=== PATIENT | female | born 1990 | race African-American/Black ===

== ENCOUNTER 2017-05-25 23:38 | Inpatient (IN) ==
[2017-05-26] MEDS ORDERED: SODIUM CHLORIDE 0.9% 1,000 ML IV STA ×2 (01:49→02:59)
[2017-05-26 02:10] LABS: Alanine Aminotransferase 23 U/L (13-56); Albumin 3.6 G/DL (3.4-5.0); Alkaline Phosphatase 186 U/L (45-117); Aspartate Amino Transferase 19 U/L (0-37); Blood Urea Nitrogen < 1 MG/DL (7-18); Osmolality,Calculated 292.7 MOS/KG (273-304); Potassium 2.8 MMOL/L (3.5-5.1); Sodium 133 MMOL/L (136-145); Total Protein 9.1 G/DL (6.4-8.3)
[2017-05-26 02:16] LABS: Glucose 652 MG/DL (74-106)
[2017-05-26] MEDS ORDERED: INSULIN REGULAR 100 UNIT/ML IV STA (02:59)
[2017-05-26] MEDS ORDERED: INSULIN REGULAR 100 UNIT/ML ONE (03:21)
[2017-05-26] MEDS ORDERED: SODIUM CHLORIDE 0.9% 1,000 ML IV ONE (03:41)
[2017-05-26] MEDS ORDERED: SODIUM PHOSPHATE INJ 30 MMOL in SODIUM CHLORIDE 0.9% 250 ML IV PRN (03:41)
[2017-05-26] MEDS ORDERED: DEXTROSE 50% 25 GM/50 ML SYRINGE IV PRN ×2 (03:41)
[2017-05-26] MEDS ORDERED: SODIUM BICARB INJ 100 MEQ in STERILE WATER INJ 400 ML IV PRN (03:41)
[2017-05-26 03:42] LABS: Apearance,Urine Slightly Hazy (Clear); Bilirubin,Urine Negative (Negative); Blood, Urine Large mg/dL (Negative); Glucose,Urine (UA) >=500 mg/dL (Negative); Ketones,Urine 80 mg/dL (Negative); Mucus,Urine Occasional /LPF (Occasional); Nitrite,Urine Negative (Negative); Protein,Urine Negative; RBC,Urine 73 /HPF (0-4); Squamous Epithelial Cell,Urine Occasional /HPF (0-10); Urine Color Straw (Yellow); Urine Specific Gravity 1.013 (1.001-1.035); Urine Urobilinogen < 2.0 EU/DL (0.2-1.0); WBC,Urine 19 /HPF (0-6)
[2017-05-26] MEDS ORDERED: MAGNESIUM SULF RIDER 4 GM in PREMIX 1 EACH IV PRN (03:51)
[2017-05-26] MEDS ORDERED: POTASSIUM CHLORIDE RIDER 10 MEQ in PREMIX 1 EACH IV PRN ×2 (03:51→21:12)
[2017-05-26] MEDS ORDERED: MAGNESIUM SULF RIDER 2 GM in PREMIX 1 EACH IV PRN (03:51)
[2017-05-26] MEDS ORDERED: INSULIN REGULAR DRIP 100 ML IV SCH (04:00)
--- NOTE | 2017-05-26 04:06 | Hospitalist History & Physical ---
Assessment and Plan - Time spent with patient Time spent with patient: Greater than 30 minutes (1) DKA (diabetic ketoacidoses) Status: Acute Assessment and plan: Admit to hospitalist services. Admit to ICU. BG 652, CO2 12, Anion Gap 21.8, Serum Osmo 292.7, pH 7.238, HCO3 10.7. NS bolus x 3 given in ED; Continue fluid resuscitation per DKA protocol. Regular insulin 10 units IV given in ED, after which patient's BG dropped from 652 to 371. Continue Regular insulin 4 units/hour and titrate per DKA protocol. K+ 2.8; Potassium chloride 60 meq PO given in ED. Additional replacement PRN. Hourly accuchecks. Obtain Magnesium and Phosphorous; replace PRN. Repeat CBC, CMP, and Ketones in am. Current Visit: Yes (2) Diabetes mellitus, new onset Status: Acute Assessment and plan: As above. Full liquid diet. Consult President & Founder and Dietitian. Current Visit: Yes (3) Hypokalemia Status: Acute Assessment and plan: As above. Current Visit: Yes (4) Yeast infection Status: Acute Assessment and plan: Extensive infection covering perineal area, bilateral upper thighs and buttocks. Diflucan 200 mg IV Q 24 hours. Monistat 100 mg Vaginal Suppository QHS x 7 doses. Current Visit: Yes (5) UTI (urinary tract infection) Status: Acute Assessment and plan: Likely yeast UTI. Diflucan 200 mg IV Q24 hours. Urine cultures obtained in ED; follow. Current Visit: Yes (6) Hypertension Status: Acute Assessment and plan: No home medications. Hydralazine 10 mg IV Q6 PRN. Monitor. Current Visit: Yes (7) DVT prophylaxis Status: Acute Assessment and plan: Lovenox 40 mg SQ daily. Current Visit: Yes History of Present Illness Chief complaint: Vomiting; Yeast infection History of present illness: Ms. Morris is a 27 year old female with a past medical history of cerebral palsy, seizures, and hypertension who presented to the ED tonight with complaints of nausea and vomiting x 2 days and severe yeast infection x 2 months. Ms. Morris states that she has tried numerous OTC treatments for her yeast infection but nothing has worked, and it has continued to get worse, spreading to her lower abdomen, upper thighs and buttocks. Additionally, she began experiencing nausea, vomiting, lower abdominal pain, subjective fevers, and chills 2 days ago and has been unable to eat anything in that length of time. She also complains of no bowel movement x 2 months. She denies any known history of diabetes. She us unable to use the right side of her body due to CVA at and is wheelchair bound. She reports that she has been known to occasionally have seizures if she gets too hot but does not take any seizure medications. She has not taken BP meds in about 2 years because she has not reestablished with a PCP after moving. ED work up showed Na 133, K 2.8, CO2 12, Anion Gap 12, BG 652, and Serum osmolality 292.7. Other labs are still pending. CT abd/pelvis was negative for any acute process. Currently, she is lying in bed eating ice chips without any additional complaints. Hospitalist services were consulted, and the patient will be admitted for further evaluation and treatment. Home medications were reviewed and reconciled. This patient is a full code. Home Medications Medication Instructions Recorded Confirmed Type Cyclobenzaprine [Flexeril] 10 mg PO TID PRN #20 tablet 10/09/15 Rx HYDROcodone/ACETAMIN 7.5-325 1 tablet PO Q4H #20 tablet 10/09/15 Rx [[place] 7.5-325] Sulfameth/Trimeth 800-160 Tab 1 tablet PO BID #14 tablet 10/09/15 Rx [Bactrim Ds Tab] Cyclobenzaprine [Flexeril] 10 mg PO TID #20 tablet 12/12/15 Rx HYDROcodone/ACETAMIN 5-325 [[place] 1 tablet PO Q6H #10 tablet 12/12/15 Rx 5-325] Allergies Allergy/AdvReac Type Severity Reaction Status Date / Time aspirin AdvReac Nausea Verified 04/05/15 05:27 ibuprofen [From Motrin] AdvReac Nausea Verified 04/05/15 05:27 Medical,Surgical,& Family Hx - Medical History Cardio: History of: Hypertension Neurology: History of: Cerebral Palsy Endocrine: History of: Dyslipidemia Musculoskeletal: History of: Musculoskeletal Problems (right sided paralysis) - Surgical History Abdominal Surgeries: Surgical HX of: Cholecystectomy Orthopedic Surgeries: Surgical HX of;: Orthopedic Surgery (Right ankle ORIF ) - Family History Family History: Reports;: Family Hypertension - Social History Smoking Status: Never smoker Have you smoked in the last 12 months: No Frequency of Alcohol Use: None Type of Drug Use: None Marital Status: Single Lives With:: Significant Other Functional capacity: wheelchair bound 12 point system: reviewed and no additional remarkable complaints except as stated - Constitutional Constitutional: Present: chills, fever(s). Absent: malaise, weakness - EENT Eyes: Absent: blurry vision, diplopia, loss of vision Ears: Absent: decreased hearing, ear discharge, ear pain Nose, mouth and throat: Absent: headache(s), nasal congestion, sore throat - Cardiovascular Cardiovascular: Absent: chest pain at rest, diaphoresis, dyspnea, edema, orthopnea, palpitations - Respiratory Respiratory: Absent: cough, dyspnea, wheezing - Gastrointestinal Gastrointestinal: Present: abdominal pain, constipation, nausea, vomiting. Absent: diarrhea - Genitourinary Genitourinary: Present: urinary frequency, vaginal discharge. Absent: dysuria - Musculoskeletal Musculoskeletal: Absent: arthralgias, joint swelling, muscle weakness, myalgias - Neurological Neurological: Absent: confusion, numbness, paresthesias, syncope - Psychiatric Psychiatric: Absent: anxiety, depression - Endocrine Endocrine: Present: polydipsia, polyuria. Absent: cold intolerance, polyphagia - Hematologic/Lymphatic Hematologic/Lymphatic: Absent: easy bleeding, easy bruising Exam - Constitutional Vitals: Period Temp Pulse Resp BP Sys/Gonzalez Pulse Ox Last 24 Hr 97.4 F-97.4 F 108-108 15-15 149-149/88-88 100 Exam: Constitutional System: Afebrile. Awake, alert and oriented x 3. No distress. No tremulousness. Skin: Confluent, tender dermatitis covering bilateral upper thighs, perineal area and buttocks. Head: Normocephalic, atraumatic. Ears, Nose and Throat System: No pain or tenderness. No epistaxis or discharge Eyes System: Pupils equal, round, and reactive. Bilateral exophthalmos and lateral deviation noted. Neck: Supple, without adenopathy, No jugular venous distention. No thyromegaly, neck mass, or prior surgery apparent. Respiratory System: Chest clear to auscultation. Cardiovascular System: Heart with tachycardic rate and regualr rhythm. No murmur. GI System: Abdomen soft, tender over suprapubic area. Normo active bowel sounds present. Musculoskeletal System: Limbs with no pedal edema. Full distal pulses. Normal capillary refill. Neurological System: Right-sided paralysis. No discernable sensory deficit. No aphasia Psychiatric System: Conversation is rational Results - Labs CBC & BMP: 05/26/17 Unknown 05/26/17 Unknown Lab Results: I have reviewed the past 24 hour labs - Diagnostic Findings Procedure: CT Abdomen and Pelvis: other (Report pending. )
[2017-05-26 04:15] LABS: VBG HCO3 10.7 MEQ/L (24-28); VBG Oxygen Saturation 99.4 %; VBG PH 7.238
[2017-05-26] MEDS ORDERED: POTASSIUM CHLORIDE 20 MEQ TABLET PO ONE ×2 (05:21→05:26)
[2017-05-26] MEDS ORDERED: hydrALAZINE 20 MG/1 ML VIAL IV PRN (05:30)
[2017-05-26] MEDS: INSULIN REGULAR DRIP 100 ML IV SCH ×2 (05:56→20:31)
[2017-05-26] MEDS: FLUCONAZOLE INJ 200 MG in PREMIX 1 EACH IV SCH (06:08)
[2017-05-26 06:20] LABS: Allen Test Positive; Pt O2 Delivery Device Room Air
[2017-05-26 06:21] LABS: ABG HCO3 11.2 MMOL/L (20-26); ABG Oxygen Saturation 97.9 % (95-100); ABG PH 7.246 (7.35-7.45); ABG TCO2 7.5 MMOL/L (23-27)
[2017-05-26 06:22] LABS: ABG PCO2 18.7 MM HG (35-48)
--- NOTE | 2017-05-26 07:01 | Emergency Department Note ---
Arrival - Arrival Chief Complaint: Nausea/Vomiting/Diarrhea Stated Complaint: Nausea/Vomiting and yeast infection ED Nursing Triage Note: Patient stated that she has had Nausea and Vomiting x 2 days, and states that she has a severe yeast infection that she has been treating for two months now. Mode of Arrival: Stretcher Time Seen by Provider: 05/26/17 00:11 - History of Present Illness HPI Narrative: This is a 27-year-old female of descent with a history of cerebral palsy making it impossible for her to walk who presents with vaginal white discharge for 2 months with associated yeastlike outbreak in the perivaginal area associated with 2 months of excessive thirst and increased urination. The patient had sex approximately 4 months ago and developed the yeast infection symptoms approximately 2 months ago. She has no history of fever shortness of breath but she is complaining of vomiting and nausea for the past 2 days. Patient denies ever having history of diabetes. Date of Last Menstrual Period: 2 months Allergies/Adverse Reactions: Allergies Allergy/AdvReac Type Severity Reaction Status Date / Time aspirin AdvReac Nausea Verified 04/05/15 05:27 ibuprofen [From Motrin] AdvReac Nausea Verified 04/05/15 05:27 Home Medications: Home Medications Medication Instructions Recorded Confirmed Type Cyclobenzaprine [Flexeril] 10 mg PO TID PRN #20 tablet 10/09/15 Rx HYDROcodone/ACETAMIN 7.5-325 1 tablet PO Q4H #20 tablet 10/09/15 Rx [[place] 7.5-325] Sulfameth/Trimeth 800-160 Tab 1 tablet PO BID #14 tablet 10/09/15 Rx [Bactrim Ds Tab] Cyclobenzaprine [Flexeril] 10 mg PO TID #20 tablet 12/12/15 Rx HYDROcodone/ACETAMIN 5-325 [[place] 1 tablet PO Q6H #10 tablet 12/12/15 Rx 5-325] Review of System - Review of System Constitutional: Absent: fever Eyes: Absent: discharge, redness Head/Ears/Nose/Throat: Absent: earache Respiratory: Absent: cough, respiratory distress Cardiovascular: Absent: chest pain, dyspnea on exertion Gastrointestinal: Present: nausea, vomiting. Absent: diarrhea, constipation Genitourinary female: Present: discharge, frequency. Absent: dysuria Musculoskeletal: Absent: joint swelling, lower back pain Skin: Present: change in color, change in hair/nails Neurological: Present: numbness, paresthesias Psychiatric: Present: anxiety, depression Endocrine: Present: polydipsia, polyuria Hematological/Lymphatic: Present: easy bleeding, easy bruising Allergic/Immunologic: Present: urticaria, itchy eyes Medical,Surgical,& Family Hx - Medical History Cardio: History of: Hypertension Neurology: History of: Cerebrovascular Accident (at ), Cerebral Palsy Endocrine: History of: Diabetes Mellitus (NIDDM), Dyslipidemia Musculoskeletal: History of: Musculoskeletal Problems (right sided paralysis) - Surgical History Abdominal Surgeries: Surgical HX of: Cholecystectomy Orthopedic Surgeries: Surgical HX of;: Orthopedic Surgery (Right ankle ORIF ) - Family History Family History: Reports;: Family Hypertension Comment Only: Family Stroke (Paternal Grandfather) - Social History Smoking Status: Never smoker Frequency of Alcohol Use: None Type of Drug Use: None Exam Vital Signs: Vital Signs Temperature 97.4 F L 05/25/17 23:39 Pulse Rate 91 H 05/26/17 05:10 Respiratory Rate 19 05/26/17 05:10 Blood Pressure 131/93 05/26/17 05:10 O2 Sat by Pulse Oximetry 98 05/26/17 06:00 - General General appearance: alert, in no apparent distress - Eye Eye exam: Present: PERRL, nystagmus - ENT ENT exam: Present: normal exam, TM's normal bilaterally - Neck Neck exam: Present: normal inspection, full ROM - Chest Chest inspection: Present: normal inspection, symmetric chest wall rise - Respiratory Respiratory exam: Present: normal lung sounds bilaterally - Cardiovascular Cardiovascular exam: Present: regular rate, normal rhythm - Abdominal Exam Abdominal exam: Present: soft, normal bowel sounds - Extremities Exam Extremities exam: Present: normal inspection, full ROM - Back Exam Back exam: Present: normal inspection, full ROM - Neurological Exam Neurological exam: Present: alert, oriented X3, CN II-XII intact - Psychiatric Psychiatric exam: Present: normal affect, normal mood - Skin Skin exam: Present: warm, dry, intact Course Course Narrative: The patient's laboratory tests are consistent with diabetic ketoacidosis therefore seems reasonable patient should be admitted to the hospital for further evaluation and treatment. Results - Labs CBC & BMP: 05/26/17 Unknown 05/26/17 Unknown Disposition Clinical Impression: Diabetic ketoacidosis Disposition: Still a Patient Condition: Stable
--- NOTE | 2017-05-26 07:03 | CT Report ---
CT abdomen pelvis Indication: Abdominal pain Comparison: 09 October 2015 Technique: Axial CT imaging of the abdomen and pelvis is performed with intravenous and oral contrast. Contrast dose is 100 cc of Omnipaque 350. Findings: Cardiac and lung bases are within normal limits CT abdomen: The liver is diffusely decreased in density spleen pancreas and adrenal glands are normal in size and enhancement. No evidence of focal lesion is demonstrated in these solid organs. Gallbladder is been removed. Kidneys are normal in size and enhancement. No evidence of hydronephrosis or nephrolithiasis is seen. Increased stool volume in the ascending colon. Otherwise the bowel caliber is normal and no wall thickening or adjacent inflammatory change is seen. No evidence of free fluid or free air is present. CT pelvis: The pelvic bowel appears within normal limits. Bladder shows no evidence of abnormality. The uterus appears within normal limits. There is a cystic area adjacent to the uterus on the left that measures up to 1 cm in size. Impression: Possible left ovarian or adnexal cyst. Diffuse fatty liver infiltration. Increased stool volume ascending colon. This CT exam was performed using one or more the following dose reduction techniques: Automated exposure control, adjustment of the MA and/or KV according to patient size, or use of iterative reconstruction technique. PROCEDURE INTERPRETED AT [facility] DEPARTMENT OF RADIOLOGY Final Report Signed by: Dr. José Miguel Hannah
[2017-05-26] MEDS: SODIUM CHLORIDE 0.9% 1,000 ML IV SCH ×2 (07:05→13:03)
[2017-05-26] MEDS ORDERED: MAGNESIUM SULF RIDER 2 GM in PREMIX 1 EACH IV ONE (08:01)
[2017-05-26 08:18] LABS: Allen Test Positive; Pt O2 Delivery Device Room Air
[2017-05-26 08:19] LABS: ABG Base Excess -17.2 MMOL/L (-2.5-2.5); ABG HCO3 11.6 MMOL/L (20-26); ABG Oxygen Saturation 97.3 % (95-100); ABG PO2 98.4 MM HG (80-95); ABG TCO2 8.1 MMOL/L (23-27)
[2017-05-26 08:22] LABS: ABG PCO2 20.1 MM HG (35-48)
[2017-05-26] MEDS: POTASSIUM CHLORIDE INJ 10 MEQ in DEXTROSE 5% NACL 0.9% 1,000 ML IV SCH ×3 (08:36→19:18)
[2017-05-26] MEDS: ENOXAPARIN 40 MG/0.4 ML SYRINGE SUBCUT SCH (08:37)
[2017-05-26] MEDS: POTASSIUM CHLORIDE 20 MEQ TABLET PO SCH ×4 (08:37→21:15)
[2017-05-26 08:48] LABS: Basophils % 0.3 % (0.0-0.8); Eosinophils % 0.2 % (0.00-10.9); Hematocrit 39.9 VOL% (35.7-47.0); Hemoglobin 12.9 GM/DL (12.0-16.0); Immature Granulocytes % 1.2 %; Immature Granulocytes Absolute 0.16 #; Lymphocytes # 2.5 10*3/uL (1.4-4.0); Lymphocytes % 18.7 % (21.3-54.2); Mean Corpuscular HGB Conc 32.3 GM/DL (32-36); Mean Corpuscular Hemoglobin 27 PG (27-34); Mean Corpuscular Volume 84.5 FL (87-102); Mean Platelet Volume 11.9 FL (9.6-12.0); Monocytes % 7.8 % (1.7-12.7); NRBC # 0.04 10*3/uL; Neutrophils # 9.6 10*3/uL (1.4-7.4); Neutrophils % 71.8 % (38.7-73.9); Platelet Count 392 T/CUMM (130-400); Red Blood Count 4.72 MC/CUMM (3.8-5.5); Red Cell Distribution Width 19.9 % (9.3-17.3); White Blood Count 13.3 T/CUMM (4-12)
[2017-05-26] MEDS ORDERED: SODIUM CHLORIDE 0.9% 1,000 ML IV SCH (08:51)
[2017-05-26 09:44] LABS: Blood Urea Nitrogen < 1 MG/DL (7-18); Glucose 189 MG/DL (74-106); Magnesium 1.9 MG/DL (1.8-2.4); Osmolality,Calculated 283.5 MOS/KG (273-304); Phosphorous 0.9 MG/DL (2.5-4.9); Potassium 2.7 MMOL/L (3.5-5.1); Sodium 142 MMOL/L (136-145)
[2017-05-26] MEDS: LEVOFLOXACIN INJ 500 MG in PREMIX 1 EACH IV SCH (10:52)
[2017-05-26] MEDS: DESITIN 4OZ/NYSTATIN 15 GRAM MIXTURE PASTE TOP SCH ×2 (12:18→21:36)
--- NOTE | 2017-05-26 15:28 | Post Interventional Procedure ---
Pre-op diagnosis: diabetic ketoacidosis, n/v Post-op diagnosis: same Procedure: PICC placement Contrast: none Flouroscopy: 2.4 min Radiologist: Nam De La Rosa Anesthesia: local Specimens: none sent Estimated blood loss: minimal (5 mL) Complications: none Condition: stable Description/Findings: left bascilic and cephalic veins are patent and compressible initial attempts to cannulate the cephalic vein were unsuccessful The 5 Fr dual lumen PICC was placed into the basilic vein and is ready for use. Assessment and Plan - Time spent with patient Time spent with patient: Less than 30 minutes
--- NOTE | 2017-05-26 15:33 | Interventional Radiology Rpt ---
IR PICC line insertion, US guide vascular access IR PICC Placement Peripherally-inserted central catheter (PICC) placement using ultrasound and fluoroscopic guidance Ultrasound of the left upper extremity Clinical Information: 27-year-old female with diabetic ketoacidosis, or use infection and nausea vomiting with limited peripheral venous access. PICC line is requested. Physician: Dr. De La Rosa Procedure: The patient was advised of the benefits, risks, and alternatives of the procedure and informed consent was obtained. A time out was performed with verification of the patient's name, MRN, site of procedure, and type of procedure to be performed. The patient was positioned in the supine position on the angiographic table. The site was prepped and draped in the usual sterile fashion. Additionally, maximal sterile barrier technique was employed for the procedure. A air moving technician radiograph reveals no relevant abnormality. Ultrasound examination of the left arm demonstrates patent and compressible brachial and basilic veins. The basilic veins are noted to be diminutive in size. There is also patent and compressible cephalic vein. Initial attempts to cannulate the cephalic vein were unsuccessful. The left arm was prepped and draped in the usual sterile fashion. The left basilic vein was again identified. Using ultrasound guidance, a 21 gauge needle was used to access the vein. A permanent ultrasound recording of vascular access was obtained for the patient's record. A 0.018" cope wire was then advanced into the vein. The needle was exchanged for a 5 Congolese peel-away sheath. A 5 [place] double lumen Bard Solo PICC catheter was measured and trimmed to the 44 cm brooks. The PICC line was advanced through the sheath and into the central circulation. The catheter tip was positioned at the cavo-atrial junction. The peel-away sheath was then removed. At the conclusion of the procedure, the catheter was secured in place using a Stat-Lock device. A sterile dressing was applied. The lumens aspirate and flush freely. The catheter is ready for immediate use. The patient tolerated the procedure well and was returned to the PRU in stable condition. EBL: < 5 mL. Complications: None. Fluoroscopy time: 2.4 minutes Total number of images for this study: 5 Conclusion: Successful placement of a 5 [place] double lumen Bard Solo power injectable PICC via the left basilic vein. The catheter is ready for immediate use. PROCEDURE INTERPRETED AT [facility] DEPARTMENT OF RADIOLOGY Final Report Signed by: Nam De La Rosa
[2017-05-26 17:07] LABS: Blood Urea Nitrogen < 1 MG/DL (7-18); Calcium 7.6 MG/DL (8.5-10.1); Glucose 349 MG/DL (74-106); Osmolality,Calculated 294.3 MOS/KG (273-304); Potassium 3.5 MMOL/L (3.5-5.1); Sodium 143 MMOL/L (136-145)
[2017-05-26 17:38] LABS: Basophils # 0.1 10*3/uL (0.0-0.2); Basophils % 0.5 % (0.0-0.8); Eosinophils # 0.1 10*3/uL (0.0-0.87); Hematocrit 33.6 VOL% (35.7-47.0); Hemoglobin 10.8 GM/DL (12.0-16.0); Lymphocytes # 2.2 10*3/uL (1.4-4.0); Lymphocytes % 22.5 % (21.3-54.2); Mean Corpuscular HGB Conc 32.1 GM/DL (32-36); Mean Corpuscular Hemoglobin 27 PG (27-34); Mean Corpuscular Volume 83.8 FL (87-102); Mean Platelet Volume 11.3 FL (9.6-12.0); Monocytes # 1.3 10*3/uL (0.11-0.8); Neutrophils # 6.1 10*3/uL (1.4-7.4); Platelet Count 319 T/CUMM (130-400); Red Blood Count 4.01 MC/CUMM (3.8-5.5); Red Cell Distribution Width 19.9 % (9.3-17.3); White Blood Count 9.9 T/CUMM (4-12)
[2017-05-26 18:57] LABS: Blood Urea Nitrogen < 1 MG/DL (7-18); Calcium 7.5 MG/DL (8.5-10.1); Glucose 324 MG/DL (74-106); Osmolality,Calculated 291.5 MOS/KG (273-304); Potassium 2.9 MMOL/L (3.5-5.1); Sodium 142 MMOL/L (136-145)
[2017-05-26] MEDS ORDERED: POTASSIUM CHLORIDE INJ 40 MEQ in SODIUM CHLORIDE 0.45% 1,000 ML IV SCH (19:30)
[2017-05-26] MEDS: POTASSIUM CHLORIDE INJ 40 MEQ in SODIUM CHLORIDE 0.45% 1,000 ML IV SCH (20:05)
[2017-05-26] MEDS: MICONAZOLE 100 MG VAG SUPP 7/BOX VAG SCH (21:36)
[2017-05-26] MEDS: ONDANSETRON 4 MG/2 ML VIAL IV PRN (21:37)
[2017-05-26] MEDS: SODIUM CHLORIDE 0.45% 1,000 ML IV SCH (21:37)
[2017-05-26] MEDS: POTASSIUM CHLORIDE RIDER 20 MEQ in PREMIX 1 EACH IV PRN (21:49)
[2017-05-26] MEDS: DEXT 5% NACL 0.45% KCL 40 MEQ 40 MEQ/1,000 ML BAG IV SCH (22:03)
[2017-05-26] MEDS ORDERED: METOPROLOL TARTRATE 5 MG/5 ML VIAL IV ONE (23:41)
[2017-05-27] MEDS: POTASSIUM CHLORIDE INJ 40 MEQ in SODIUM CHLORIDE 0.45% 1,000 ML IV SCH (03:40)
[2017-05-27 04:17] LABS: Blood Urea Nitrogen < 1 MG/DL (7-18); Calcium 8.5 MG/DL (8.5-10.1); Glucose 127 MG/DL (74-106); Osmolality,Calculated 291.6 MOS/KG (273-304); Sodium 148 MMOL/L (136-145)
[2017-05-27] MEDS: POTASSIUM CHLORIDE RIDER 20 MEQ in PREMIX 1 EACH IV PRN ×2 (04:33→23:04)
[2017-05-27 04:51] LABS: Free T4 (Free Thyroxine) 1.37 NG/DL (0.76-1.46)
[2017-05-27] MEDS: DEXT 5% NACL 0.45% KCL 40 MEQ 40 MEQ/1,000 ML BAG IV SCH ×3 (05:48→18:39)
[2017-05-27] MEDS: FLUCONAZOLE INJ 200 MG in PREMIX 1 EACH IV SCH (05:56)
[2017-05-27] MEDS: SODIUM CHLORIDE 0.45% 1,000 ML IV SCH (05:56)
[2017-05-27 08:27] LABS: Blood Urea Nitrogen < 1 MG/DL (7-18); Calcium 8.1 MG/DL (8.5-10.1); Glucose 229 MG/DL (74-106); Osmolality,Calculated 294.8 MOS/KG (273-304); Sodium 147 MMOL/L (136-145)
[2017-05-27 08:32] LABS: Potassium 7.2 MMOL/L (3.5-5.1)
[2017-05-27] MEDS ORDERED: DEXTROSE 5% NACL 0.45% 1,000 ML IV SCH (09:00)
[2017-05-27] MEDS: INSULIN REGULAR DRIP 100 ML IV SCH (09:00)
[2017-05-27] MEDS: LEVOFLOXACIN INJ 500 MG in PREMIX 1 EACH IV SCH (09:01)
[2017-05-27] MEDS: DESITIN 4OZ/NYSTATIN 15 GRAM MIXTURE PASTE TOP SCH ×2 (09:02→22:00)
[2017-05-27] MEDS: ENOXAPARIN 40 MG/0.4 ML SYRINGE SUBCUT SCH (09:02)
[2017-05-27] MEDS ORDERED: NIFEdipine 10 MG CAPSULE PO PRN (11:05)
--- NOTE | 2017-05-27 11:09 | Hospitalist Progress Note ---
Assessment and Plan (1) DKA (diabetic ketoacidoses) Status: Acute Assessment and plan: The patient was moved the hospital with diabetic ketoacidosis. We are still determining her daily insulin requirement and will continue insulin infusion for today. Acidosis has been resolved. I suspect that she still has total body hypo-kalemia but her laboratory returned hyperkalemic result. Potassium repletion is on hold for now awaiting the next BMP. We will continue with insulin infusion overnight and consider transition to injected insulin tomorrow. The patient has poor insight into her disease process and is so far stating that she would not use injected insulin which is unfortunate. Current Visit: Yes Qualifiers: Diabetes mellitus type: type 1 Diabetes mellitus complication detail: without coma Qualified Code(s): E10.10 - Type 1 diabetes mellitus with ketoacidosis without coma (2) Diabetes mellitus, new onset Status: Acute Current Visit: Yes Hospitalist: Subjective Interval history: The patient remains on insulin infusion. Glucose is well controlled at present and acidosis is resolved. The patient's appetite is now improving and she has less nausea and abdominal pain is resolved. The patient has poor insight into her disease. The patient states that she has had disconjugate gaze and exophthalmos since childhood. Thyroid function testing is within normal limits. The patient has no previous history of diabetes. Exam - Constitutional Vitals: Period Temp Pulse Resp BP Sys/Gonzalez Pulse Ox Last 24 Hr 97.4 F-98.3 F 98-128 17-28 113-162/71-113 95-100 Exam: Constitutional System: Mild distress. No tremulousness. Head: Normocephalic, atraumatic. Ears, Nose and Throat System: No evidence of Otitis or Mastoiditis. No epistaxis or discharge Eyes System: The patient has appropriate site. She has exophthalmos and disconjugate gaze. Neck: Supple, without adenopathy, No jugular venous distention. No thyromegaly , neck mass, or prior surgery apparent. Respiratory System: Chest clear to auscultation. Cardiovascular System: Heart with regular rate and rhythm. No murmur. GI System: Abdomen soft, nontender. Normo active bowel sounds present. Musculoskeletal System: limbs with 1+ pedal edema. Full distal pulses. Neurological System: No discernable sensory deficit. No aphasia Psychiatric System: Conversation is rational Results - Labs CBC & BMP: 05/26/17 Unknown 05/27/17 07:51 Lab Results: I have reviewed the past 24 hour labs
[2017-05-27 13:02] LABS: Blood Urea Nitrogen < 1 MG/DL (7-18); Calcium 8.5 MG/DL (8.5-10.1); Glucose 92 MG/DL (74-106); Osmolality,Calculated 289.6 MOS/KG (273-304); Sodium 148 MMOL/L (136-145)
[2017-05-27 18:13] LABS: Blood Urea Nitrogen < 1 MG/DL (7-18); Calcium 8.4 MG/DL (8.5-10.1); Glucose 103 MG/DL (74-106); Osmolality,Calculated 291.5 MOS/KG (273-304); Potassium 2.7 MMOL/L (3.5-5.1); Sodium 149 MMOL/L (136-145)
[2017-05-27] MEDS: MICONAZOLE 100 MG VAG SUPP 7/BOX VAG SCH (22:05)
[2017-05-27 22:15] LABS: Blood Urea Nitrogen < 1 MG/DL (7-18); Calcium 8.4 MG/DL (8.5-10.1); Glucose 141 MG/DL (74-106); Osmolality,Calculated 291.6 MOS/KG (273-304); Potassium 2.7 MMOL/L (3.5-5.1); Sodium 148 MMOL/L (136-145)
[2017-05-28] MEDS: POTASSIUM CHLORIDE RIDER 20 MEQ in PREMIX 1 EACH IV PRN (00:53)
[2017-05-28 01:37] LABS: Blood Urea Nitrogen < 1 MG/DL (7-18); Calcium 7.9 MG/DL (8.5-10.1); Glucose 188 MG/DL (74-106); Magnesium 1.9 MG/DL (1.8-2.4); Osmolality,Calculated 292.8 MOS/KG (273-304); Potassium 3.2 MMOL/L (3.5-5.1); Sodium 147 MMOL/L (136-145)
[2017-05-28] MEDS: DEXT 5% NACL 0.45% KCL 40 MEQ 40 MEQ/1,000 ML BAG IV SCH (03:04)
[2017-05-28] MEDS: FLUCONAZOLE INJ 200 MG in PREMIX 1 EACH IV SCH (06:10)
[2017-05-28] MEDS: INSULIN REGULAR DRIP 100 ML IV SCH (06:55)
[2017-05-28] MEDS ORDERED: GLUCAGON 1 MG VIAL IM PRN (07:44)
[2017-05-28] MEDS ORDERED: DEXTROSE 50% 25 GM/50 ML SYRINGE IV PRN (07:44)
[2017-05-28 07:53] LABS: Blood Urea Nitrogen < 1 MG/DL (7-18); Calcium 8.4 MG/DL (8.5-10.1); Glucose 80 MG/DL (74-106); Osmolality,Calculated 284.9 MOS/KG (273-304); Potassium 3.5 MMOL/L (3.5-5.1); Sodium 146 MMOL/L (136-145)
--- NOTE | 2017-05-28 07:53 | Hospitalist Progress Note ---
Assessment and Plan (1) DKA (diabetic ketoacidoses) Status: Acute Assessment and plan: The patient's acidosis has resolved. Going to discontinue insulin infusion and start injected insulin twice daily before meals as well as glipizide. The patient likely has diabetes mellitus type 2 with onset of acidosis after continuous hyperglycemia. I am going to reduce the IV fluid and dextrose infusion and continue the patient's regular diet. We will continue with potassium replacement and recheck electrolytes this afternoon and again tomorrow morning. The Lora catheter will be removed. Current Visit: Yes Qualifiers: Diabetes mellitus type: type 1 Diabetes mellitus complication detail: without coma Qualified Code(s): E10.10 - Type 1 diabetes mellitus with ketoacidosis without coma (2) Diabetes mellitus, new onset Status: Acute Current Visit: Yes Hospitalist: Subjective Interval history: Mrs. Morris complains of supra-pubic crampy discomfort. She has not had fever , cough, shortness of breath. Appetite is better. The patient is stable and ready to transition to injected insulin and moved to the floor. Acidosis has resolved. Exam - Constitutional Vitals: Period Temp Pulse Resp BP Sys/Gonzalez Pulse Ox Last 24 Hr 97.1 F-98.1 F 82-118 14-23 105-161/62-113 96-100 Exam: Constitutional System: Mild distress. No tremulousness. Head: Normocephalic, atraumatic. Ears, Nose and Throat System: No evidence of Otitis or Mastoiditis. No epistaxis or discharge Eyes System: The patient has appropriate site. She has exophthalmos and disconjugate gaze. Neck: Supple, without adenopathy, No jugular venous distention. No thyromegaly , neck mass, or prior surgery apparent. Respiratory System: Chest clear to auscultation. Cardiovascular System: Heart with regular rate and rhythm. No murmur. GI System: Abdomen soft, nontender. Normo active bowel sounds present. Musculoskeletal System: limbs with 1+ pedal edema. Full distal pulses. Neurological System: No discernable sensory deficit. No aphasia Psychiatric System: Conversation is rational Results - Labs CBC & BMP: 05/26/17 Unknown 05/28/17 01:10 Lab Results: I have reviewed the past 24 hour labs
[2017-05-28] MEDS: LEVOFLOXACIN INJ 500 MG in PREMIX 1 EACH IV SCH (08:24)
[2017-05-28] MEDS: DESITIN 4OZ/NYSTATIN 15 GRAM MIXTURE PASTE TOP SCH ×2 (08:35→21:56)
[2017-05-28] MEDS: FLUCONAZOLE 200 MG TABLET PO SCH (08:36)
[2017-05-28] MEDS: ENOXAPARIN 40 MG/0.4 ML SYRINGE SUBCUT SCH (08:36)
[2017-05-28] MEDS ORDERED: ALUMINUM/MAGNES/SIMETH MAX STR 30 ML UDCUP PO PRN (11:20)
[2017-05-28] MEDS: INSULIN LISPRO 100 UNIT/ML SUBCUT SCH ×4 (11:29→21:56)
[2017-05-28] MEDS: ACETAMINOPHEN 500 MG TABLET PO PRN (11:36)
[2017-05-28] MEDS: POTASSIUM CHLORIDE 20 MEQ TABLET PO SCH ×2 (11:37→16:02)
[2017-05-28] MEDS: glipiZIDE 10 MG TABLET PO SCH (16:01)
[2017-05-28] MEDS: INSULIN NPH/REGULAR 70/30 100 UNIT/ML SUBCUT SCH (16:04)
[2017-05-28 16:28] LABS: Blood Urea Nitrogen < 1 MG/DL (7-18); Calcium 8.2 MG/DL (8.5-10.1); Glucose 348 MG/DL (74-106); Magnesium 1.8 MG/DL (1.8-2.4); Osmolality,Calculated 288.8 MOS/KG (273-304); Potassium 4.2 MMOL/L (3.5-5.1); Sodium 140 MMOL/L (136-145)
[2017-05-28] MEDS: MICONAZOLE 100 MG VAG SUPP 7/BOX VAG SCH (21:57)
[2017-05-29] MEDS: INSULIN LISPRO 100 UNIT/ML SUBCUT SCH ×6 (02:25→22:07)
[2017-05-29 04:00] LABS: Blood Urea Nitrogen < 1 MG/DL (7-18); Calcium 8.3 MG/DL (8.5-10.1); Glucose 166 MG/DL (74-106); Osmolality,Calculated 293.6 MOS/KG (273-304); Potassium 3.3 MMOL/L (3.5-5.1); Sodium 148 MMOL/L (136-145)
[2017-05-29] MEDS: glipiZIDE 10 MG TABLET PO SCH ×2 (08:31→16:25)
[2017-05-29] MEDS: INSULIN NPH/REGULAR 70/30 100 UNIT/ML SUBCUT SCH ×2 (08:31→18:02)
[2017-05-29] MEDS: ACETAMINOPHEN 500 MG TABLET PO PRN (08:32)
[2017-05-29] MEDS: FLUCONAZOLE 200 MG TABLET PO SCH (08:32)
[2017-05-29] MEDS: ENOXAPARIN 40 MG/0.4 ML SYRINGE SUBCUT SCH (08:32)
[2017-05-29] MEDS: LEVOFLOXACIN INJ 500 MG in PREMIX 1 EACH IV SCH (08:36)
[2017-05-29] MEDS ORDERED: POTASSIUM CHLORIDE 20 MEQ/15 ML UDCUP PO ONE (08:41)
[2017-05-29] MEDS: SULFAMETHOX/TRIMETHOPRIM 800-160 MG TABLET PO SCH ×2 (09:41→21:54)
[2017-05-29 10:18] LABS: Risk Ratio 3.31; VLDL CHOLESTEROL 18.2 MG/DL
[2017-05-29] MEDS: DESITIN 4OZ/NYSTATIN 15 GRAM MIXTURE PASTE TOP SCH ×2 (10:39→21:54)
--- NOTE | 2017-05-29 11:20 | Hospitalist Progress Note ---
Assessment and Plan (1) DKA (diabetic ketoacidoses) Status: Acute Assessment and plan: Resolved though blood sugar is still fairly poorly controlled plan increase NPH 70/30 to 45units bid, follow response. DM teaching Current Visit: Yes Qualifiers: Diabetes mellitus type: type 1 Diabetes mellitus complication detail: without coma Qualified Code(s): E10.10 - Type 1 diabetes mellitus with ketoacidosis without coma (2) Diabetes mellitus, new onset Status: Acute Assessment and plan: [id number] Increase NPH, follow response, DM teaching Current Visit: Yes (3) Obesity Status: Acute Assessment and plan: will get TSH, Lipids, Dietitian to advise Current Visit: Yes (4) Yeast infection Status: Acute Assessment and plan: Extensive infection covering perineal area, bilateral upper thighs and buttocks. Continue Diflucan and monostat Current Visit: Yes (5) UTI (urinary tract infection) Status: Acute Assessment and plan: due to MRSA Continue Levaquin and Bactrim Current Visit: Yes (6) Hypertension Status: Acute Assessment and plan: consider starting Lisinopril follow response Current Visit: Yes (7) Cerebral palsy Status: Acute Assessment and plan: stage 2. Patient is wheelchair bound Plan nursing care GI and DVT prophylaxis Current Visit: Yes (8) Hypokalemia Status: Acute Assessment and plan: will replete, bmp in am Current Visit: Yes Hospitalist: Subjective Interval history: Patient seen this am. She is wheelchair bound due to her underlying cerebral palsy.Her blood sugar is still fairly high. Exam - Constitutional Vitals: Period Temp Pulse Resp BP Sys/Gonzalez Pulse Ox Last 24 Hr 97.0 F-99.9 F 97-111 16-20 102-122/61-83 94-100 General appearance: no acute distress, morbidly obese, other (paraplegic) - Head Head exam: Present: normal inspection - Respiratory Respiratory exam: Present: clear to auscultation bilaterally - Cardiovascular Cardiovascular exam: Present: regular rate and rhythm - GI/Abdominal GI/Abdominal exam: Present: normal bowel sounds - Extremities Exam Extremities exam: Present: other (paraplegic) Results - Labs CBC & BMP: 05/26/17 Unknown 05/29/17 03:23 Lab Results: I have reviewed the past 24 hour labs
[2017-05-29] MEDS ORDERED: POTASSIUM CHLORIDE 20 MEQ TABLET PO ONE (11:28)
[2017-05-29] MEDS: MICONAZOLE 100 MG VAG SUPP 7/BOX VAG SCH (21:54)
[2017-05-30] MEDS: INSULIN LISPRO 100 UNIT/ML SUBCUT SCH ×6 (02:09→22:17)
[2017-05-30 06:07] LABS: Basophils % 0.3 % (0.0-0.8); Eosinophils # 0.2 10*3/uL (0.0-0.87); Eosinophils % 2.1 % (0.00-10.9); Hematocrit 31.1 VOL% (35.7-47.0); Hemoglobin 10.2 GM/DL (12.0-16.0); Immature Granulocytes % 1.8 %; Immature Granulocytes Absolute 0.16 #; Lymphocytes # 4.1 10*3/uL (1.4-4.0); Lymphocytes % 46.7 % (21.3-54.2); Mean Corpuscular HGB Conc 32.8 GM/DL (32-36); Mean Corpuscular Hemoglobin 28 PG (27-34); Mean Corpuscular Volume 86.4 FL (87-102); Monocytes # 1.1 10*3/uL (0.11-0.8); Monocytes % 12.6 % (1.7-12.7); NRBC # 0.11 10*3/uL; Neutrophils # 3.2 10*3/uL (1.4-7.4); Neutrophils % 36.5 % (38.7-73.9); Platelet Count 266 T/CUMM (130-400); Red Cell Distribution Width 23.1 % (9.3-17.3); White Blood Count 8.7 T/CUMM (4-12)
[2017-05-30 06:38] LABS: Eosinophils 1 % (0-10); Hypochromasia Slight; Lymphocytes 35 % (20-55); Macrocytosis 1+; Nucleated Red Blood Cells 3 (0-5); Platelet Estimate Adequate; Polychromasia Slight; Segmented Neutrophils 54 % (50-85); Total Cells Counted 100
[2017-05-30 06:46] LABS: Blood Urea Nitrogen < 1 MG/DL (7-18); Calcium 8.7 MG/DL (8.5-10.1); Glucose 144 MG/DL (74-106); Osmolality,Calculated 285.2 MOS/KG (273-304); Potassium 3.9 MMOL/L (3.5-5.1); Sodium 144 MMOL/L (136-145)
[2017-05-30] MEDS: INSULIN NPH/REGULAR 70/30 100 UNIT/ML SUBCUT SCH ×2 (08:39→17:47)
[2017-05-30] MEDS: glipiZIDE 10 MG TABLET PO SCH ×2 (08:39→17:47)
[2017-05-30] MEDS: ENOXAPARIN 40 MG/0.4 ML SYRINGE SUBCUT SCH (08:39)
[2017-05-30] MEDS: FLUCONAZOLE 200 MG TABLET PO SCH (08:39)
[2017-05-30] MEDS: SULFAMETHOX/TRIMETHOPRIM 800-160 MG TABLET PO SCH ×2 (08:39→20:04)
[2017-05-30] MEDS: LEVOFLOXACIN INJ 500 MG in PREMIX 1 EACH IV SCH (08:40)
[2017-05-30] MEDS: DESITIN 4OZ/NYSTATIN 15 GRAM MIXTURE PASTE TOP SCH ×3 (09:02→19:20)
[2017-05-30] MEDS: LISINOPRIL 2.5 MG TABLET PO SCH (10:49)
--- NOTE | 2017-05-30 11:51 | Hospitalist Progress Note ---
Assessment and Plan (1) DKA (diabetic ketoacidoses) Status: Acute Assessment and plan: Resolved plan continue Insulin therapy DM teaching Current Visit: Yes Qualifiers: Diabetes mellitus type: type 1 Diabetes mellitus complication detail: without coma Qualified Code(s): E10.10 - Type 1 diabetes mellitus with ketoacidosis without coma (2) Diabetes mellitus, new onset Status: Acute Assessment and plan: [id number]. She dropped her blood sugar to 51 at 2am today Decrease NPH to 40units bid, follow response, continue DM teaching Current Visit: Yes (3) Obesity Status: Acute Assessment and plan: TSH, Lipids- noted, Follow Dietitian's advise Current Visit: Yes (4) Yeast infection Status: Acute Assessment and plan: Extensive infection covering perineal area, bilateral upper thighs and buttocks. Continue Diflucan and monostat Current Visit: Yes (5) UTI (urinary tract infection) Status: Acute Assessment and plan: due to MRSA Continue Levaquin and Bactrim Current Visit: Yes (6) Hypertension Status: Acute Assessment and plan: consider starting Lisinopril follow response Current Visit: Yes (7) Cerebral palsy Status: Acute Assessment and plan: stage 2. Patient is wheelchair bound, she requests for an electric type Plan nursing care GI and DVT prophylaxis Current Visit: Yes (8) Hypokalemia Status: Acute Assessment and plan: will replete, bmp in am Current Visit: Yes Hospitalist: Subjective Interval history: Patient seen this am. She states a history of nausea. Her blood sugar dropped to 51 earlier on this am. She requests for an electric wheel chair. Exam - Constitutional Vitals: Period Temp Pulse Resp BP Sys/Gonzalez Pulse Ox Last 24 Hr 97.2 F-98.2 F 77-108 18-20 105-154/62-90 96-100 General appearance: no acute distress, morbidly obese - Head Head exam: Present: normal inspection - Respiratory Respiratory exam: Present: clear to auscultation bilaterally - Cardiovascular Cardiovascular exam: Present: regular rate and rhythm - GI/Abdominal GI/Abdominal exam: Present: normal bowel sounds - Extremities Exam Extremities exam: Present: other (paraplegic) Results - Labs CBC & BMP: 05/30/17 05:49 05/30/17 05:49 Lab Results: I have reviewed the past 24 hour labs
[2017-05-30 16:12] LABS: Apearance,Urine CLOUDY (Clear); Bacteria,Urine Few /HPF (Few); Bilirubin,Urine Negative (Negative); Blood, Urine Moderate mg/dL (Negative); Glucose,Urine (UA) Negative (Negative); Ketones,Urine Negative (Negative); Nitrite,Urine Negative (Negative); Protein,Urine Negative; RBC,Urine 8 /HPF (0-4); Squamous Epithelial Cell,Urine Few /HPF (0-10); Urine Color Straw (Yellow); Urine Specific Gravity 1.002 (1.001-1.035); Urine Urobilinogen < 2.0 EU/DL (0.2-1.0); WBC,Urine 21 /HPF (0-6)
[2017-05-30] MEDS: MICONAZOLE 100 MG VAG SUPP 7/BOX VAG SCH (19:20)
[2017-05-31] MEDS: INSULIN LISPRO 100 UNIT/ML SUBCUT SCH ×4 (02:47→16:09)
[2017-05-31] MEDS: FLUCONAZOLE 200 MG TABLET PO SCH (08:12)
[2017-05-31] MEDS: DESITIN 4OZ/NYSTATIN 15 GRAM MIXTURE PASTE TOP SCH (08:12)
[2017-05-31] MEDS: INSULIN NPH/REGULAR 70/30 100 UNIT/ML SUBCUT SCH ×2 (08:12→16:24)
[2017-05-31] MEDS: glipiZIDE 10 MG TABLET PO SCH ×2 (08:12→16:24)
[2017-05-31] MEDS: LEVOFLOXACIN INJ 500 MG in PREMIX 1 EACH IV SCH (08:12)
[2017-05-31] MEDS: SULFAMETHOX/TRIMETHOPRIM 800-160 MG TABLET PO SCH (08:13)
[2017-05-31] MEDS: LISINOPRIL 2.5 MG TABLET PO SCH (08:13)
[2017-05-31] MEDS: ENOXAPARIN 40 MG/0.4 ML SYRINGE SUBCUT SCH (08:13)
[2017-05-31] MEDS: ONDANSETRON 4 MG/2 ML VIAL IV PRN (11:03)
--- NOTE | 2017-05-31 13:33 | Discharge Summary ---
Hospital Course - Hospital Course Hospital Course: Ms. Morris is a 27 year old female with a past medical history of cerebral palsy, seizures, and hypertension who presented to the ED tonight with complaints of nausea and vomiting x 2 days and severe yeast infection x 2 months. Ms. Morris states that she has tried numerous OTC treatments for her yeast infection but nothing has worked, and it has continued to get worse, spreading to her lower abdomen, upper thighs and buttocks. Upon arrival, her blood sugar was 652, anion gap of 21.8. She was admitted to the unit for treatment of DKA. She was started on IVF, insulin infusion and electrolytes were corrected.She was also started on IV diflucan and Monistat.Her blood sugar progressively improved. Urine grew MRSA and gram negative rods.His blood pressure was controlled . This am, she feels good and has quested for an electric wheelchair and ready to be be discharged. 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 She will also get a Home health and Home PT services.She had a DM teaching and her blood sugar has improved. - Time spent with patient Time with patient DS: Greater than 30 minutes (Time spent: 35mins) Diagnosis - Discharge Diagnosis (1) DKA (diabetic ketoacidoses) Status: Acute (2) Diabetes mellitus, new onset Status: Acute (3) Obesity Status: Acute (4) Yeast infection Status: Acute (5) UTI (urinary tract infection) Status: Acute (6) Hypertension Status: Acute (7) Cerebral palsy Status: Acute (8) Hypokalemia Status: Acute Discharge Plan - Discharge Data Disposition: Disch To Home/Self Care Condition at Discharge: Stable Activity: resume usual activities as tolerated - Discharge Medications New Fluconazole Tab [Diflucan Tab] 200 mg PO DAILY #7 tablet glipiZIDE [Glucotrol] 10 mg PO BIDAC #60 tablet Levofloxacin Tab [Levaquin Tab] 500 mg PO DAILY #7 tablet Sulfameth/Trimeth 800-160 Tab [Bactrim DS Tab] 1 tablet PO BID tablet Acetaminophen Tab [Tylenol Tab] 1,000 mg PO Q4H PRN tablet PRN Reason: Fever, Headache, Mild Pain Insulin NPH/Regular 70/30 [HumuLIN 70/30] 40 unit SUBCUT BIDAC #7 unit Lisinopril [Prinivil] 2.5 mg PO DAILY #30 tablet - Follow Up or Referral - Forms/Instructions Additional Discharge Instructions: Follow with PCP in 1week. Exam - Constitutional Vitals: Period Temp Pulse Resp BP Sys/Gonzalez Pulse Ox Last 24 Hr 97.4 F-98.9 F 89-101 18-20 93-120/46-68 97-99 General appearance: no acute distress, morbidly obese - Head Head exam: Present: normal inspection - Respiratory Respiratory exam: Present: clear to auscultation bilaterally - Cardiovascular Cardiovascular exam: Present: regular rate and rhythm - GI/Abdominal GI/Abdominal exam: Present: normal bowel sounds Discharge Results Procedures and tests throughout hospitalization: Pending Orders 05/30/17 Urine Culture Routine Labs on day of discharge: Labs from last 24 hours 05/31/17 05/31/17 05/31/17 10:33 05:35 02:14 POC Glucose 256 H 130 H 137 H Urine Color Urine Appearance Urine pH Ur Specific [place] Urine Protein Urine Glucose (UA) Urine Ketones Urine Blood Urine Nitrate Urine Bilirubin Urine Urobilinogen Urine Leukocytes Urine RBC Urine WBC Ur Squamous Epith Cells Urine Bacteria Ur Culture Indicated? 05/30/17 05/30/17 05/30/17 21:46 16:07 15:53 POC Glucose 210 H 153 H Urine Color Straw Urine Appearance Cloudy Urine pH 8.0 Ur Specific [place] 1.002 Urine Protein Negative Urine Glucose (UA) Negative Urine Ketones Negative Urine Blood Moderate Urine Nitrate Negative Urine Bilirubin Negative Urine Urobilinogen < 2.0 H Urine Leukocytes Trace Urine RBC 8 Urine WBC 21 Ur Squamous Epith Cells Few Urine Bacteria Few Ur Culture Indicated? Results to follow 05/30/17 14:47 POC Glucose 192 H Urine Color Urine Appearance Urine pH Ur Specific [place] Urine Protein Urine Glucose (UA) Urine Ketones Urine Blood Urine Nitrate Urine Bilirubin Urine Urobilinogen Urine Leukocytes Urine RBC Urine WBC Ur Squamous Epith Cells Urine Bacteria Ur Culture Indicated? Preliminary micro results at discharge 05/30/17 Unknown Urine Culture - Preliminary Urine,Voided Gram Negative Rods DS: Provider Date of admission: 05/26/17 03:51 Primary care physician: . No PCP Attending physician on admission: Kita Becker MD Consults: 05/26/17 03:51 Consult to Diabetes Center, Educator [CONS] Routine Reason for Race Relations Professor: Diabetes Education Initial Insulin Education Consult Comment: INSULIN EDUCATION 05/26/17 05:48 Consult to Dietitian [CONS] Routine Reason for Dietitian: Dietary Consult 05/29/17 08:41 Consult to Diabetes Center, Educator [CONS] Routine Reason for Race Relations Professor: Diabetes Education 05/29/17 09:51 Consult to Case Mgmt/Social Srvs [CONS] Routine Reason for Case Mgmt/Social Srvs: Home Health Consult to Physical Therapy [CONS] Routine Reason for Physical Therapy: Evaluate and Treat 05/29/17 11:22 Consult to Diabetes Center, Educator [CONS] Routine Reason for Race Relations Professor: Diabetes Education 05/30/17 08:51 Consult to Case Mgmt/Social Srvs [CONS] Routine Reason for Case Mgmt/Social Srvs: Equipment Consult Comment: ELECTRIC WHEELCHAIR FOR HOME USE Discharging clinician: Katty Villegas MD
[2017-05-31 16:19] VITALS: BP 114/60
== END 2017-05-31 17:01 | disposition home or self-care (01) | DRG 638 ==
LOC: EDUNIT# → EDBD → N.ED 23:38 → N.EDINP 05-26 03:51 → SUATTDRO 05-26 03:51 → N.CC 05-26 04:53 → N.3E 05-28 09:07
PROVIDERS: ADMIT Family Medicine; ATTEND Internal Medicine

== ENCOUNTER 2018-03-20 17:56 | Inpatient (IN) ==
[2018-03-23 11:58] VITALS: BP 104/77
== END 2018-03-23 15:01 | disposition home or self-care (01) | DRG 378 ==
LOC: EDUNIT# → EDBD → N.ED 17:56 → N.EDINP 23:43 → N.2E 03-21 00:53
PROVIDERS: ADMIT Emergency Medicine; ATTEND Emergency Medicine